=== PATIENT | male | born 1955 | race Caucasian/White ===

== ENCOUNTER 2018-04-12 11:37 | Day surgery (SDC) | payer MEDICAID ==
[2018-04-11 09:28] LABS: CLARITY,URINE CLEAR (Clear); COLOR,URINE YELLOW (Yellow); GLUCOSE, URINE NEGATIVE (Neg); KETONES,URINE NEGATIVE (Neg); LEUKOCYTE ESTERASE ,URINE NEGATIVE (Neg); NITRITES, URINE NEGATIVE (Neg); OCCULT BLOOD,URINE NEGATIVE (Neg); PROTEIN,URINE NEGATIVE (Neg); UROBILINOGEN,URINE 0.2 E.U/dL (0.2-1.0)
[2018-04-11 09:30] LABS: UA COLLECTION TYPE CLN CATCH MIDSTREAM
[2018-04-11 09:32] LABS: BASOPHILS # (AUTO) 0.1 X10'3 (0-0.2); BASOPHILS % (AUTO) 0.9 % (0-1); EOSINOPHILS # (AUTO) 0.2 X10'3 (0-0.9); EOSINOPHILS % (AUTO) 2.3 % (0-6); LYMPHOCYTES # (AUTO) 2.8 X10'3 (1.1-4.8); LYMPHOCYTES % (AUTO) 31.3 % (21-51); MEAN CORPUSCULAR HEMOGLOBIN 30.8 PG (27.0-31.0); MEAN CORPUSCULAR HGB CONC 34.9 % (33.0-36.5); MEAN CORPUSCULAR VOLUME 88.4 FL (78-98); MEAN PLATELET VOLUME 7.5 FL (7.4-10.4); MONOCYTES # (AUTO) 0.8 X10'3 (0-0.9); NEUTROPHILS % (AUTO) 56.5 % (42-75); PRE OP HEMATOCRIT 49.1 % (42.0-52.0); PRE OP HEMOGLOBIN 17.1 g/dL (14.0-17.9); PRE OP PLATELET COUNT 224 X10'3 (140-440); RED BLOOD COUNT 5.56 X10'6 (4.70-6.10); RED CELL DISTRIBUTION WIDTH 12.8 % (11.5-14.5)
[2018-04-11 09:48] LABS: ALBUMIN 3.8 G/DL (3.4-5.0); ALBUMIN/GLOBULIN RATIO 1.1 (1.1-1.5); ALKALINE PHOSPHATASE 101 IU/L (46-116); BLOOD UREA NITROGEN 14 MG/DL (7-18); BUN/CREATININE RATIO 15.4 (5.4-32.0); CALCIUM 8.7 MG/DL (8.5-10.1); CHLORIDE 103 MMOL/L (99-107); CREATININE 0.91 MG/DL (0.60-1.10); PRE OP ALT 37 U/L (30-65); PRE OP ANION GAP 10 (8-16); PRE OP AST 20 U/L (10-37); PRE OP BILIRUB, TOTAL 0.5 MG/DL (0.0-1.0); PRE OP GLUCOSE 100 MG/DL (70-104); PRE OP SODIUM 138 MMOL/L (135-145); TOTAL CARBON DIOXIDE 25.3 MMOL/L (24-32); TOTAL PROTEIN 7.3 G/DL (6.4-8.2); eGFR 84 ML/MIN
[2018-04-12] VITALS (8 sets, daily range): BP systolic 118–131; BP diastolic 64–94
[~2018-04-12] VITALS: Ht 177.8 cm; Wt 89.0 kg
[~2018-04-12 11:37] MED LIST: ALBU18HF2 INH; IPRA3AMP31 INH; LORA10TA65 PO; METH4TAB PO; UMEC1DIS INH; cefazolin/dext.iso 2gm/100 ML IV ONE; famotidine 20mg tablet PO ONE; ringers solution, lacted 1,000 ML IV SCH
[2018-04-12] MEDS ORDERED: LIDOcaine 1% (10mg/ml) 2ml vial ONE (11:45)
[2018-04-12] MEDS ORDERED: ringers solution, lacted 1,000 ML IV SCH (12:24)
[2018-04-12] MEDS ORDERED: morphine 4 MG/ML inj SYRINge IV PRN ×2 (12:25)
[2018-04-12] MEDS ORDERED: hydrALAZINE 20mg/ml inj. IV PRN (12:25)
[2018-04-12] MEDS ORDERED: ondansetron/PF 4mg/2ml inj IV PRN (12:25)
[2018-04-12] MEDS ORDERED: labetalol 20mg/4ml (5mg/ml) syringe IV PRN (12:25)
[2018-04-12] MEDS ORDERED: fentaNYL/PF 50MCG/1 ML 2ML syringe IV PRN ×2 (12:25)
[2018-04-12] MEDS ORDERED: BUPIVAcaine/PF 2.5mg/ml (0.25%) 10ml vial ONE (13:32)
[2018-04-12] MEDS ORDERED: LIDOcaine 1% 30ml preserv. free vial ONE (13:32)
[2018-04-12] MEDS ORDERED: sevoflurane 250ml liquid IH ONE (14:00)
[2018-04-12] MEDS ORDERED: midazolam 2 mg/2 ml injection ONE (14:07)
[2018-04-12] MEDS ORDERED: fentaNYL/PF 50MCG/1 ML 2ML syringe ONE (14:07)
[2018-04-12] MEDS ORDERED: propofol inj 20 ML IV ONE (14:11)
[2018-04-12] MEDS ORDERED: LIDOcaine 2% (20mg/ml) 5ml vial ONE (14:11)
== END 2018-04-12 16:00 | disposition home or self-care (01) ==
LOC: PAS 11:37
PROVIDERS: ATTEND Surgery
DX: D17.0 Benign lipomatous neoplasm of skin and subcutaneous tissue of head, face and neck (principal); J44.9 Chronic obstructive pulmonary disease, unspecified; G47.33 Obstructive sleep apnea (adult) (pediatric); M19.90 Unspecified osteoarthritis, unspecified site; K21.9 Gastro-esophageal reflux disease without esophagitis; F17.210 Nicotine dependence, cigarettes, uncomplicated; Z99.81 Dependence on supplemental oxygen; Z72.89 Other problems related to lifestyle; Z88.5 Allergy status to narcotic agent; Z90.49 Acquired absence of other specified parts of digestive tract; Z98.890 Other specified postprocedural states; Z79.899 Other long term (current) drug therapy
CPT/HCPCS: 21555; 36415; 80053; 81003; 85025; 93005; A6449; J0690; J2001; J2250; J2704; J3010; J3490; A7000; J7120

== ENCOUNTER 2018-04-16 08:25 | Day surgery (SDC) | payer MEDICAID ==
[~2018-04-16] VITALS: Ht 177.8 cm; Wt 90.7 kg
[2018-04-16] VITALS (16 sets, daily range): BP systolic 125–147; BP diastolic 62–112
[~2018-04-16 08:25] MED LIST changes: -cefazolin/dext.iso 2gm/100 ML IV ONE; -famotidine 20mg tablet PO ONE; -ringers solution, lacted 1,000 ML IV SCH
[2018-04-16] MEDS ORDERED: normal saline 1000ml 1,000 ML IV PRN (08:40)
[2018-04-16] MEDS ORDERED: UMEC1DIS (09:29)
[2018-04-16] MEDS ORDERED: ALBU18HF2 INH (09:30)
[2018-04-16 09:32] LABS: BASOPHILS # (AUTO) 0.1 X10'3 (0-0.2); BASOPHILS % (AUTO) 0.9 % (0-1); EOSINOPHILS # (AUTO) 0.3 X10'3 (0-0.9); EOSINOPHILS % (AUTO) 3.8 % (0-6); HEMATOCRIT 46.6 % (42.0-52.0); HEMOGLOBIN 15.6 g/dl (14.0-17.9); LYMPHOCYTES # (AUTO) 2.2 X10'3 (1.1-4.8); LYMPHOCYTES % (AUTO) 28.9 % (21-51); MEAN CORPUSCULAR HEMOGLOBIN 30.4 PG (27.0-31.0); MEAN CORPUSCULAR HGB CONC 33.6 % (33.0-36.5); MEAN CORPUSCULAR VOLUME 90.5 FL (78-98); MEAN PLATELET VOLUME 6.9 FL (7.4-10.4); MONOCYTES # (AUTO) 0.7 X10'3 (0-0.9); MONOCYTES % (AUTO) 8.9 % (2-12); NEUTROPHILS # (AUTO) 4.3 X10'3 (1.8-7.7); NEUTROPHILS % (AUTO) 57.5 % (42-75); PLATELET COUNT 284 X10'3 (140-440); RED BLOOD COUNT 5.15 X10'6 (4.70-6.10); RED CELL DISTRIBUTION WIDTH 13.7 % (11.5-14.5); WHITE BLOOD COUNT 7.5 X10'3 (4.5-11.0)
[2018-04-16 09:39] LABS: ALBUMIN 3.2 G/DL (3.4-5.0); ANION GAP 10 (8-16); BLOOD UREA NITROGEN 13 MG/DL (7-18); BUN/CREATININE RATIO 14.9 (5.4-32.0); CALCIUM 8.1 MG/DL (8.5-10.1); CHLORIDE 104 MMOL/L (99-107); CREATININE 0.87 MG/DL (0.60-1.10); GLUCOSE 119 MG/DL (70-104); POTASSIUM 3.9 MMOL/L (3.5-5.1); SODIUM 139 MMOL/L (135-145); TOTAL CARBON DIOXIDE 25.2 MMOL/L (24-32); eGFR 88 ML/MIN
[2018-04-16 09:41] LABS: PROTHROMBIN TIME 10.3 SECONDS (9.0-12.0)
[2018-04-16] MEDS ORDERED: LIDOcaine 1%/PF 5ML 10 MG/ML VIAL SQ ONE (11:10)
[2018-04-16] MEDS ORDERED: midazolam 2 mg/2 ml injection IV PRN (11:10)
[2018-04-16] MEDS ORDERED: fentaNYL/PF 50MCG/1 ML 2ML syringe IV PRN (11:10)
[2018-04-16] MEDS ORDERED: LIDOcaine 1% (10mg/ml) 2ml vial SQ ONE (11:15)
[2018-04-16] MEDS ORDERED: fentaNYL/PF 50MCG/1 ML 2ML syringe ONE (11:27)
== END 2018-04-16 14:36 | disposition home or self-care (01) ==
LOC: SSTAY O 08:25
PROVIDERS: ATTEND Radiology Diagnostic Radiology
DX: J84.89 Other specified interstitial pulmonary diseases (principal); G89.29 Other chronic pain; J42 Unspecified chronic bronchitis; F17.210 Nicotine dependence, cigarettes, uncomplicated; J44.9 Chronic obstructive pulmonary disease, unspecified; K21.9 Gastro-esophageal reflux disease without esophagitis; Z99.81 Dependence on supplemental oxygen; Z90.49 Acquired absence of other specified parts of digestive tract; Z72.89 Other problems related to lifestyle; Z88.5 Allergy status to narcotic agent; Z87.891 Personal history of nicotine dependence; Z98.890 Other specified postprocedural states; Z79.899 Other long term (current) drug therapy
CPT/HCPCS: 10022; 36415; 71045; 77012; 80048; 85025; 85610; 99152; 99153; C2613; J3010; J7030; 32405; J2001

== ENCOUNTER 2019-01-08 06:25 | Day surgery (SDC) | payer MEDICARE, MEDICAID ==
[2019-01-08] VITALS (15 sets, daily range): BP systolic 118–152; BP diastolic 61–94
[~2019-01-08] VITALS: Ht 175.3 cm; Wt 80.0 kg
[~2019-01-08 06:25] MED LIST changes: -LORA10TA65 PO; -METH4TAB PO
[2019-01-08] MEDS ORDERED: normal saline 1000ml 1,000 ML IV SCH ×2 (06:45→08:24)
[2019-01-08] MEDS ORDERED: ASPI-611 PO (06:54)
[2019-01-08] MEDS ORDERED: MELO-102 PO (06:54)
[2019-01-08] MEDS ORDERED: LORA10TA7 PO (06:54)
[2019-01-08 07:05] LABS: BASOPHILS # (AUTO) 0.1 X10'3 (0-0.2); BASOPHILS % (AUTO) 0.7 % (0-1); EOSINOPHILS # (AUTO) 0.4 X10'3 (0-0.9); EOSINOPHILS % (AUTO) 5.5 % (0-6); HEMATOCRIT 53.4 % (42.0-52.0); LYMPHOCYTES # (AUTO) 1.9 X10'3 (1.1-4.8); LYMPHOCYTES % (AUTO) 27.3 % (21-51); MEAN CORPUSCULAR HEMOGLOBIN 31.7 PG (27.0-31.0); MEAN CORPUSCULAR HGB CONC 33.7 g/dL (33.0-36.5); MEAN CORPUSCULAR VOLUME 94.1 FL (78-98); MEAN PLATELET VOLUME 6.6 FL (7.4-10.4); MONOCYTES # (AUTO) 0.7 X10'3 (0-0.9); MONOCYTES % (AUTO) 9.9 % (2-12); NEUTROPHILS % (AUTO) 56.6 % (42-75); PLATELET COUNT 243 X10'3 (140-440); RED BLOOD COUNT 5.68 X10'6 (4.70-6.10); RED CELL DISTRIBUTION WIDTH 14.5 % (11.5-14.5); WHITE BLOOD COUNT 7.1 X10'3 (4.5-11.0)
[2019-01-08 07:16] LABS: ALANINE AMINOTRANSFERASE 38 U/L (12-78); ALBUMIN 3.8 G/DL (3.4-5.0); ALKALINE PHOSPHATASE 109 IU/L (46-116); ANION GAP 11 (8-16); ASPARTATE AMINO TRANSFERASE 24 U/L (10-37); BILIRUBIN,TOTAL 0.2 MG/DL (0.1-1.0); BLOOD UREA NITROGEN 7 MG/DL (7-18); BUN/CREATININE RATIO 9.3 (5.4-32.0); CALCIUM 8.5 MG/DL (8.5-10.1); CHLORIDE 106 MMOL/L (99-107); CREATININE 0.75 MG/DL (0.60-1.10); GLUCOSE 90 MG/DL (70-104); POTASSIUM 4.1 MMOL/L (3.5-5.1); SODIUM 140 MMOL/L (135-145); TOTAL CARBON DIOXIDE 22.7 MMOL/L (24-32); TOTAL PROTEIN 7.5 G/DL (6.4-8.2); eGFR > 90 ML/MIN
[2019-01-08] MEDS ORDERED: fentaNYL/PF 50MCG/1 ML 2ML syringe IV PRN (08:25)
[2019-01-08] MEDS ORDERED: midazolam 2 mg/2 ml injection IV PRN (08:25)
[2019-01-08] MEDS ORDERED: LIDOcaine 1%/PF 5ML 10 MG/ML VIAL SQ ONE (08:25)
[2019-01-08] MEDS ORDERED: fentaNYL/PF 50MCG/1 ML 2ML syringe ONE (08:30)
[2019-01-08] MEDS ORDERED: LIDOcaine 1%/PF 5ML 10 MG/ML VIAL ONE (08:30)
[2019-01-08] MEDS ORDERED: midazolam 2 mg/2 ml injection ONE (08:30)
[2019-01-08] MEDS ORDERED: gelatin sponge, absorbable (Gelfoam 12-7MM) sponge TP ONE (08:45)
[2019-01-08] MEDS ORDERED: LIDOcaine/PRILOcaine 5gm cream TP ONE (08:47)
== END 2019-01-08 11:50 | disposition home or self-care (01) ==
LOC: SSTAY O 06:25
PROVIDERS: ATTEND Radiology Vascular & Interventional Radiology
DX: R91.8 Other nonspecific abnormal finding of lung field (principal); J44.9 Chronic obstructive pulmonary disease, unspecified; F17.210 Nicotine dependence, cigarettes, uncomplicated; E66.3 Overweight; Z68.25 Body mass index [BMI] 25.0-25.9, adult; Z79.899 Other long term (current) drug therapy; Z88.6 Allergy status to analgesic agent
CPT/HCPCS: 32405; 36415; 71045; 77012; 80053; 85025; 85610; J2250; J3010; J7030

== ENCOUNTER 2019-03-09 12:42 | Observation (INO) | payer MEDICARE, MEDICAID ==
[~2019-03-09] VITALS: Ht 177.8 cm; Wt 81.0 kg
[~2019-03-09 12:42] MED LIST changes: +ASPI-611 PO; +LORA10TA7 PO; +MELO-102 PO
[2019-03-09 13:10] LABS: BASOPHILS % (AUTO) 0.5 % (0-1); EOSINOPHILS # (AUTO) 0.3 X10'3 (0-0.9); EOSINOPHILS % (AUTO) 3.8 % (0-6); HEMATOCRIT 50.1 % (42.0-52.0); HEMOGLOBIN 17.4 g/dl (14.0-17.9); LYMPHOCYTES # (AUTO) 2.2 X10'3 (1.1-4.8); LYMPHOCYTES % (AUTO) 29.7 % (21-51); MEAN CORPUSCULAR HEMOGLOBIN 32.5 PG (27.0-31.0); MEAN CORPUSCULAR HGB CONC 34.7 g/dL (33.0-36.5); MEAN CORPUSCULAR VOLUME 93.6 FL (78-98); MEAN PLATELET VOLUME 6.7 FL (7.4-10.4); MONOCYTES # (AUTO) 0.6 X10'3 (0-0.9); MONOCYTES % (AUTO) 8.7 % (2-12); NEUTROPHILS # (AUTO) 4.2 X10'3 (1.8-7.7); NEUTROPHILS % (AUTO) 57.3 % (42-75); PLATELET COUNT 210 X10'3 (140-440); RED BLOOD COUNT 5.35 X10'6 (4.70-6.10); RED CELL DISTRIBUTION WIDTH 14.3 % (11.5-14.5); WHITE BLOOD COUNT 7.3 X10'3 (4.5-11.0)
[2019-03-09 13:25] LABS: PARTIAL THROMBOPLASTIN TIME 28 SECONDS (22-32)
[2019-03-09 13:27] LABS: ALANINE AMINOTRANSFERASE 56 U/L (12-78); ALBUMIN 3.7 G/DL (3.4-5.0); ALBUMIN/GLOBULIN RATIO 1.1 (1.1-1.5); ALKALINE PHOSPHATASE 89 IU/L (46-116); ANION GAP 11 (8-16); ASPARTATE AMINO TRANSFERASE 43 U/L (10-37); BILIRUBIN,TOTAL 0.4 MG/DL (0.1-1.0); BLOOD UREA NITROGEN 8 MG/DL (7-18); BUN/CREATININE RATIO 10.4 (5.4-32.0); CALCIUM 8.7 MG/DL (8.5-10.1); CHLORIDE 106 MMOL/L (99-107); CREATININE 0.77 MG/DL (0.60-1.10); GLUCOSE 80 MG/DL (70-104); POTASSIUM 4.1 MMOL/L (3.5-5.1); SODIUM 141 MMOL/L (135-145); TOTAL CARBON DIOXIDE 24.2 MMOL/L (24-32); TOTAL PROTEIN 7.2 G/DL (6.4-8.2); eGFR > 90 ML/MIN
[2019-03-09] MEDS ORDERED: potassium CL 10mEq/100ml bag 100 ML IV PRN ×2 (14:10)
[2019-03-09] MEDS ORDERED: magnesium Cl slow-release 64mg tablet PO PRN (14:10)
[2019-03-09] MEDS ORDERED: nitroGLYCERIN 0.4mg SUBLingual tab SL PRN ×2 (14:10)
[2019-03-09] MEDS ORDERED: aminophylline 250mg/10ml inj. IV PRN (14:10)
[2019-03-09] MEDS ORDERED: magnesium 2GM in 50ml NS 50 ML IV PRN (14:10)
[2019-03-09] MEDS ORDERED: metoprolol tartrate 1mg/ml inj IV PRN (14:10)
[2019-03-09] MEDS ORDERED: potassium Cl 20 mEq SR tablet PO PRN ×2 (14:10)
[2019-03-09] MEDS ORDERED: ondansetron/PF 4mg/2ml inj IV PRN (14:10)
[2019-03-09] MEDS ORDERED: regadenoson 0.4mg/5ml syringe IV ONE (14:10)
[2019-03-09] MEDS ORDERED: acetaminophen 325mg tablet PO PRN ×2 (14:10)
[2019-03-09] MEDS ORDERED: magnesium 4gm in 100ml NS 100 ML IV PRN (14:10)
[2019-03-09] MEDS ORDERED: morphine 2 MG/ML inj. syringe IV PRN ×2 (14:10)
[2019-03-09] MEDS ORDERED: magnesium hydroxide 30ml (MOM) UD suspension PO PRN (14:10)
[2019-03-09] MEDS ORDERED: mag hydrox/Alum hydrox/simeth 30ml oral suspension PO PRN (14:10)
[2019-03-09] MEDS ORDERED: aspirin 81mg tab.chew PO ONE (14:15)
[2019-03-09] MEDS ORDERED: nitroGLYCERIN 0.4mg/hour patch TD ONE (14:15)
[2019-03-09] MEDS: normal saline 1000ml 1,000 ML IV SCH ×2 (16:14→16:15)
--- NOTE | 2019-03-09 16:50 | NUR ---
Received Pt from ED. Pt stable, heart rate low and MD notified. Pt not symptomatic, other vital stable
--- NOTE | 2019-03-09 17:10 | NUR ---
PAGER ID: [phone] MESSAGE: RE; Imtiaz Ramsey, room: 3026B. Pt's heart rate continues to drop to mid 40's then returns to low 60's. Other vitals within normal limits. Pt is not symptomatic -Shankar PCU Dr. Garcia paged concerning Pt's low heart rate
--- NOTE | 2019-03-09 17:14 | NUR ---
MD Garcia returned call, Orders are continue to monitor Pt's low heart rate
[2019-03-09 17:50] VITALS: BP 126/74
--- NOTE | 2019-03-09 18:15 | NUR ---
Problems reprioritized. Patient report given, questions answered & plan of care reviewed with Suellen LAY.
[2019-03-09 19:00] VITALS: BP 135/66
[2019-03-09] MEDS ORDERED: temazepam 15mg capsule PO PRN (21:00)
[2019-03-09 23:00] VITALS: BP 119/68
[2019-03-10] VITALS (9 sets, daily range): BP systolic 102–133; BP diastolic 61–70
[2019-03-10 03:19] LABS: HEMATOCRIT 43.3 % (42.0-52.0); HEMOGLOBIN 14.8 g/dl (14.0-17.9); MEAN CORPUSCULAR HEMOGLOBIN 32.1 PG (27.0-31.0); MEAN CORPUSCULAR HGB CONC 34.2 g/dL (33.0-36.5); MEAN CORPUSCULAR VOLUME 93.8 FL (78-98); MEAN PLATELET VOLUME 7.3 FL (7.4-10.4); PLATELET COUNT 164 X10'3 (140-440); RED BLOOD COUNT 4.62 X10'6 (4.70-6.10); RED CELL DISTRIBUTION WIDTH 14.2 % (11.5-14.5); WHITE BLOOD COUNT 7.1 X10'3 (4.5-11.0)
[2019-03-10 03:33] LABS: ALBUMIN 2.8 G/DL (3.4-5.0); ANION GAP 8 (8-16); BLOOD UREA NITROGEN 11 MG/DL (7-18); BUN/CREATININE RATIO 15.5 (5.4-32.0); CALCIUM 8.3 MG/DL (8.5-10.1); CHLORIDE 107 MMOL/L (99-107); CHOL/HDL RATIO 2.4 (0.00-4.99); CHOLESTEROL 159 MG/DL (0-200); CREATININE 0.71 MG/DL (0.60-1.10); GLUCOSE 80 MG/DL (70-104); HDL CHOLESTEROL 67 MG/DL (35-60); LDL CHOLESTEROL 80 MG/DL (50-100); MAGNESIUM 1.7 MG/DL (1.5-2.4); POTASSIUM 3.9 MMOL/L (3.5-5.1); SODIUM 141 MMOL/L (135-145); TOTAL CARBON DIOXIDE 26.4 MMOL/L (24-32); TRIGLYCERIDES 68 MG/DL (20-135); eGFR > 90 ML/MIN
[2019-03-10] MEDS: normal saline 1000ml 1,000 ML IV SCH ×2 (06:14→07:16)
--- NOTE | 2019-03-10 06:56 | NUR ---
Patient in room PCU 3026. I have received report from ALIREZA VELÁZQUEZ and had the opportunity to ask questions and assume patient care.
[2019-03-10] MEDS ORDERED: regadenoson 0.4mg/5ml syringe IV ONE (08:00)
[2019-03-10] MEDS ORDERED: aspirin 81mg tablet.DR PO SCH (08:00)
[2019-03-10] MEDS ORDERED: enoxaparin 40mg/0.4ml syringe SQ SCH (08:00)
[2019-03-10] MEDS ORDERED: K and/or MAG REPLACEMENT MC SCH (08:00)
[2019-03-10] MEDS ORDERED: aminophylline 250mg/10ml inj. IV PRN (08:00)
[2019-03-10] MEDS ORDERED: loratadine 10mg tablet PO SCH (08:00)
[2019-03-10] MEDS ORDERED: aspirin 81mg tab.chew PO SCH (08:00)
[2019-03-10] MEDS ORDERED: NITR0.4T51 SL (11:24)
== END 2019-03-10 13:05 | disposition home health service (06) ==
LOC: ER 12:43 → PCU 3S 17:07
PROVIDERS: ADMIT Family Medicine; ATTEND Family Medicine
DX: I20.9 Angina pectoris, unspecified (principal); I16.0 Hypertensive urgency; I24.9 Acute ischemic heart disease, unspecified; J44.9 Chronic obstructive pulmonary disease, unspecified; F17.210 Nicotine dependence, cigarettes, uncomplicated; Z79.82 Long term (current) use of aspirin; Z79.899 Other long term (current) drug therapy; Z90.49 Acquired absence of other specified parts of digestive tract; Z99.81 Dependence on supplemental oxygen; Z59.0 Homelessness
CPT/HCPCS: 36415; 71045; 78452; 80048; 80053; 80061; 83735; 84443; 84484; 85025; 85027; 85610; 85730; 87081; 93005; 93017; 93308; 96360; 96361; 99284; A9500; G0378; J2785; J7030; 96372; J1650

== ENCOUNTER 2019-09-05 11:20 | Day surgery (SDC) | payer MEDICARE, MEDICAID ==
[~2019-09-05] VITALS: Ht 177.8 cm; Wt 82.5 kg
[~2019-09-05 11:20] MED LIST changes: -ALBU18HF2 INH; -IPRA3AMP31 INH; -MELO-102 PO; +NITR0.4T51 SL; -UMEC1DIS INH
[2019-09-05 11:40] VITALS: BP 115/74
[2019-09-05] MEDS ORDERED: normal saline 1000ml 1,000 ML IV SCH (11:40)
[2019-09-05] MEDS ORDERED: ALB0.5UD IH (12:21)
[2019-09-05] MEDS ORDERED: METO-395 PO (12:21)
[2019-09-05] MEDS ORDERED: BUDE10.2 INH (12:21)
[2019-09-05] MEDS ORDERED: ATOR20TA PO (12:21)
[2019-09-05] MEDS ORDERED: ALBU18HF2 INH (12:21)
[2019-09-05] MEDS ORDERED: NITR0.4T51 SL (12:21)
[2019-09-05] MEDS ORDERED: CLOP75TA33 PO (12:21)
[2019-09-05] MEDS ORDERED: midazolam 2 mg/2 ml injection ONE (13:59)
[2019-09-05] MEDS ORDERED: LIDOcaine 1%/PF 5ML 10 MG/ML VIAL ONE (13:59)
[2019-09-05] MEDS ORDERED: heparin sodium, porcine/PF 100unit/ml 5ML syringe ONE ×2 (13:59→14:07)
[2019-09-05] MEDS ORDERED: fentaNYL/PF 50MCG/1 ML 2ML syringe ONE (13:59)
[2019-09-05 15:00] VITALS: BP 124/85
--- NOTE | 2019-09-05 15:00 | NUR ---
pt had small amt of bleed on neck post port insertion, applied surgifoam and held pressure about 10 minutes and there was no more bleeding, new clear opsite dsg applied and will continue to monitor for any bleeding.
[2019-09-05] MEDS ORDERED: gelatin sponge, absorbable (Gelfoam 12-7MM) sponge TP ONE (15:04)
[2019-09-05 15:15] VITALS: BP 129/76
[2019-09-05 15:49] VITALS: BP 126/82
[2019-09-05 16:10] VITALS: BP 137/80
--- NOTE | 2019-09-05 16:25 | NUR ---
dsg CDI , instructed pt if there's any bleeding, infection or having any other symptoms to go to the nearest ER.
== END 2019-09-05 16:25 | disposition home or self-care (01) ==
LOC: SSTAY O 11:20
PROVIDERS: ATTEND Radiology Vascular & Interventional Radiology
DX: C34.90 Malignant neoplasm of unspecified part of unspecified bronchus or lung (principal); Z79.01 Long term (current) use of anticoagulants; Z88.6 Allergy status to analgesic agent; Z79.899 Other long term (current) drug therapy; Z72.0 Tobacco use; J44.9 Chronic obstructive pulmonary disease, unspecified; K21.9 Gastro-esophageal reflux disease without esophagitis; G47.30 Sleep apnea, unspecified
CPT/HCPCS: 36415; 36561; 76937; 77001; 85610; 99152; 99153; C1769; C1788; C1894; J1642; J2250; J3010

== ENCOUNTER 2022-04-27 08:20 | Day surgery (SDC) | payer MEDICARE, MEDICAID ==
[~2022-04-27] VITALS: Ht 177.8 cm; Wt 92.9 kg
[~2022-04-27 08:20] MED LIST changes: +ALB0.5UD IH; +ALBU18HF2 INH; +ATOR20TA PO; +BUDE10.2 INH; +CLOP75TA33 PO; -LORA10TA7 PO; +METO-395 PO
[2022-04-27 08:40] VITALS: BP 119/75
[2022-04-27] MEDS ORDERED: normal saline 1000ml 1,000 ML IV PRN (08:45)
[2022-04-27] MEDS ORDERED: albumin 25% 100mL bottle x 1 IV PRN (08:45)
[2022-04-27] MEDS ORDERED: FOLI1TAB27 PO (08:51)
[2022-04-27 09:14] LABS: BASOPHILS # (AUTO) 0.1 X10'3 (0-0.2); BASOPHILS % (AUTO) 0.7 % (0-1); EOSINOPHILS # (AUTO) 0.3 X10'3 (0-0.9); EOSINOPHILS % (AUTO) 3.9 % (0-6); HEMATOCRIT 47.1 % (42.0-52.0); LYMPHOCYTES # (AUTO) 1.4 X10'3 (1.1-4.8); LYMPHOCYTES % (AUTO) 18.2 % (21-51); MEAN CORPUSCULAR HEMOGLOBIN 30.9 PG (27.0-31.0); MEAN CORPUSCULAR HGB CONC 33.9 g/dL (33.0-36.5); MEAN CORPUSCULAR VOLUME 91.3 FL (78-98); MEAN PLATELET VOLUME 6.9 FL (7.4-10.4); MONOCYTES # (AUTO) 0.8 X10'3 (0-0.9); MONOCYTES % (AUTO) 10.2 % (2-12); NEUTROPHILS # (AUTO) 5.2 X10'3 (1.8-7.7); PLATELET COUNT 207 X10'3 (140-440); RED BLOOD COUNT 5.16 X10'6 (4.70-6.10); RED CELL DISTRIBUTION WIDTH 14.5 % (11.5-14.5); WHITE BLOOD COUNT 7.7 X10'3 (4.5-11.0)
[2022-04-27 09:39] LABS: ALBUMIN 3.8 G/DL (3.4-5.0); ANION GAP 8 (8-16); BLOOD UREA NITROGEN 13 MG/DL (7-18); BUN/CREATININE RATIO 12.5 (5.4-32.0); CALCIUM 9.6 MG/DL (8.5-10.1); CHLORIDE 103 MMOL/L (99-107); CREATININE 1.04 MG/DL (0.60-1.10); GLUCOSE 111 MG/DL (70-104); POTASSIUM 3.7 MMOL/L (3.5-5.1); SODIUM 138 MMOL/L (135-145); TOTAL CARBON DIOXIDE 26.9 MMOL/L (24-32); eGFR 71 ML/MIN
[2022-04-27] MEDS ORDERED: MESSAGE TO NURSING PO NR (10:00)
== END 2022-04-27 12:42 | disposition home or self-care (01) ==
LOC: SSTAY O 08:20
PROVIDERS: ATTEND Radiology Diagnostic Radiology
DX: C34.11 Malignant neoplasm of upper lobe, right bronchus or lung (principal); Z53.8 Procedure and treatment not carried out for other reasons; K21.9 Gastro-esophageal reflux disease without esophagitis; J44.9 Chronic obstructive pulmonary disease, unspecified; E78.5 Hyperlipidemia, unspecified; G47.30 Sleep apnea, unspecified; M19.90 Unspecified osteoarthritis, unspecified site; Z98.49 Cataract extraction status, unspecified eye; Z98.890 Other specified postprocedural states; Z79.899 Other long term (current) drug therapy; Z20.822 Contact with and (suspected) exposure to COVID-19
CPT/HCPCS: 36415; 80048; 85025; 85610; 87811; J7030

== ENCOUNTER 2023-12-19 15:23 | Emergency (ER) | payer MEDICARE, MEDICAID ==
[~2023-12-19] VITALS: Ht 177.8 cm; Wt 90.1 kg
[~2023-12-19 15:23] MED LIST changes: -ALB0.5UD IH; +ALBU2.5V12 NEB; -CLOP75TA33 PO; +FOLI1TAB27 PO; +LACT1CAP26 PO; +PANT40TA54 PO
[2023-12-19 15:32] VITALS: TEMP 99
[2023-12-19] MEDS: furosemide 20MG tablet PO ONE (17:04)
[2023-12-19 17:05] VITALS: BP 113/68; PULSE 62; RESP 22; O2SAT 96
[2023-12-19] MEDS ORDERED: DOXY150T3 PO (17:21)
[2023-12-19] MEDS ORDERED: FURO-150 PO (17:21)
[2023-12-19] MEDS ORDERED: ondansetron 4mg/5ml UD cup PO STA (17:23)
== END 2023-12-19 18:11 | disposition home or self-care (01) ==
LOC: ER 15:23
DX: R60.0 Localized edema (principal); L03.115 Cellulitis of right lower limb; I50.9 Heart failure, unspecified; F12.90 Cannabis use, unspecified, uncomplicated; Z60.2 Problems related to living alone; Z88.8 Allergy status to other drugs, medicaments and biological substances; Z79.82 Long term (current) use of aspirin; Z79.51 Long term (current) use of inhaled steroids; Z79.899 Other long term (current) drug therapy
CPT/HCPCS: 71045; 93971; 99284

== ENCOUNTER 2024-05-13 10:50 | Emergency (ER) | payer MEDICARE, MEDICAID ==
[~2024-05-13] VITALS: Ht 177.8 cm; Wt 84.1 kg
[2024-05-13] MEDS: dexamethasone sod phosphate 10mg/ml inj IM ONE (11:35)
[2024-05-13] MEDS ORDERED: PRED20TA PO (11:43)
[2024-05-13] MEDS ORDERED: HYDR-3686 PO (11:43)
[2024-05-13 11:51] VITALS: BP 132/78; PULSE 78; RESP 16; TEMP 98.5; O2SAT 98
== END 2024-05-13 11:52 | disposition home or self-care (01) ==
LOC: ER 10:51
DX: L50.0 Allergic urticaria (principal); F12.90 Cannabis use, unspecified, uncomplicated; Z88.5 Allergy status to narcotic agent; Z79.82 Long term (current) use of aspirin; Z79.51 Long term (current) use of inhaled steroids; Z79.899 Other long term (current) drug therapy; Z60.2 Problems related to living alone
CPT/HCPCS: 96372; 99284; A4615; J1100

== ENCOUNTER 2025-03-14 00:19 | Emergency (ER) | payer MEDICARE, MEDICAID ==
[~2025-03-14] VITALS: Ht 177.8 cm; Wt 73.2 kg
[2025-03-14 00:22] VITALS: TEMP 98.1
--- NOTE | 2025-03-14 00:34 | ELECTROCARDIOGRAPH REPORT ---
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 Charli Shirley Measurements Intervals [place] Rate: 53 P: 72 WA: 193 QRS: 85 QRSD: 114 T: 74 QT: 451 QTc: 424 Interpretive Statements Sinus bradycardia Anteroseptal infarct, age indeterminate Electronically Signed On 03-19-2025 18:49:[address] Charli Shirley Please click the below link to view image of tracing.
[2025-03-14 00:40] LABS: MEAN PLATELET VOLUME 6.6 FL (7.4-10.4); RED CELL DISTRIBUTION WIDTH 16.1 % (11.5-14.5)
--- NOTE | 2025-03-14 00:50 | Physician Documentation ---
History of Present Illness ~ Chief Complaint: Hip pain Stated Complaint: CHEST PAINS M BLS Time Seen by MD: 00:50 Primary Medical Doctor: Dr Wall Mode of Arrival: EMS HPI Patient presents to the emergency room with one day history of left-sided hip pain. No falls or injuries. No prior instances. No shortness of breath. Pain wraps around from his left buttock around to pass his left knee. Medication Reconciliation Allergies: Coded Allergies: codeine (Unverified Allergy, Intermediate, NAUSEA, 10/27/14) Scheduled Albuterol Sulfate (Ventolin Hfa), 90 MCG INH Q6H, (Reported) Aspirin (Aspir 81), 1 TAB PO DAILY, (Reported) Atorvastatin Calcium* (Lipitor*), 2 TAB PO HS, (Reported) Budesonide/Formoterol Fumarate (Symbicort 160-4.5 Mcg Inhaler), 2 PUFFS INH BID, (Reported) Folic Acid* (Folic Acid*), 1 TAB PO DAILY, (Reported) Lactobacillus Rhamnosus (Culturelle), 1 EACH PO BID Metoprolol Succinate (Metoprolol Succinate), 1 TAB PO DAILY, (Reported) Nitroglycerin SL* (Nitrostat SL*), 1 TAB SL UD, (Reported) Pantoprazole Sodium (Pantoprazole Sodium), 40 MG PO BID Scheduled PRN Albuterol Sulfate (Albuterol Sulfate), 1 VIAL NEB Q8H PRN for SOB or wheezing, (Reported) Tramadol HCl (Tramadol HCl), 1 TAB PO TID PRN PRN for pain Past Medical History Past Medical History: No Pertinent History Past Surgical History: other Alcohol Use: None Drug Use: marijuana Lives with: Alone Lives In: Home Review of Systems ROS All review of systems negative except as per HPI Physical Exam Vital Signs: Temperature: 98.1, Heart Rate: 66, Respiratory Rate: 16, BP: 102/64, Pulse Oximetry: 97, Weight: 73.200 Physical Exam General: Patient is awake, alert, oriented x4 in no acute distress and well appearing.~ Head: Normocephalic and atraumatic. Eyes: Conjunctival normal. EOMI. PERRL. ENT: Mucous membranes moist. Neck: Supple, trachea is midline. Chest: Clear to auscultation bilaterally without rales, rhonchi, or wheezes. There is no accessory muscle use or retractions. Cardiac: RRR without murmurs, gallops, or rubs. Abd: Soft, nondistended, nontender, with normoactive bowel sounds. No guarding, rebound, or rigidity. Extremities: Left lower extremity with tenderness to palpation to lateral left hip anterior thigh and lateral left thigh without erythema Progress Results/Orders Results/Orders Orders - WAYNE VICK MD Chest,Single View (03/14/25 00:24) Monitor (03/14/25 00:24) Saline Lock (03/14/25 00:24) Oxygen (03/14/25 00:24) Hs Troponin I W Calculations (03/14/25 02:24) Hs Troponin I W Calculations (03/14/25 03:24) Hip Unilateral 2 Views (03/14/25 01:07) Completed Orders - WAYNE VICK MD Chest,Single View (03/14/25 00:24) Cbc/Diff (03/14/25 00:24) BMP (03/14/25 00:24) PBNP (03/14/25 00:24) Electrocardiogram (03/14/25 00:24) Hs Troponin I W Calculations (03/14/25 00:24) Ketorolac Trometh 15mg/Ml Vial (Toradol (03/14/25 01:10) Acetaminophen 1,000mg/100ml Iv (Ofirmev (03/14/25 01:10) Hip Unilateral 2 Views (03/14/25 01:07) D-Dimer (03/14/25 01:07) Medications Received in ER Medications (Trade) Dose Ordered Sig/Bernardino Route PRN Reason Start Time Stop Time Status Last Admin Dose Admin (Toradol injection) 15 mg ONCE ONCE IV 03/14/25 01:10 03/14/25 01:11 DC 03/14/25 01:19 15 MG Acetaminophen 100 ml @ 400 mls/hr ONCE ONCE IV 03/14/25 01:10 03/14/25 01:24 DC 03/14/25 01:20 400 MLS/HR Vital Signs 03/14/25 03/14/25 03/14/25 03/14/25 00:22 00:33 01:16 01:19 Temp 98.1 Pulse 66 60 Resp 16 16 16 16 B/P (MAP) 102/64 131/46 (74) Pulse Ox 97 96 Laboratory Tests Test 03/14/25 00:30 White Blood Count 6.8 Red Blood Count 4.26 L Hemoglobin 10.2 L Hematocrit 31.6 L Mean Corpuscular Volume 74.3 L Mean Corpuscular Hemoglobin 24.0 L Mean Corpuscular Hemoglobin Concent 32.3 L Red Cell Distribution Width 16.1 H Platelet Count 242 Mean Platelet Volume 6.6 L Neutrophils (%) (Auto) 61.5 Lymphocytes (%) (Auto) 24.0 Monocytes (%) (Auto) 13.2 H Eosinophils (%) (Auto) 0.8 Basophils (%) (Auto) 0.5 Neutrophils # (Auto) 4.2 Lymphocytes # (Auto) 1.6 Monocytes # (Auto) 0.9 Eosinophils # (Auto) 0.1 Basophils # (Auto) 0.0 CBC Comment D-Dimer 0.40 D-Dimer Comment Sodium Level 140 Potassium Level 3.9 Chloride Level 104 Carbon Dioxide Level 30.9 Anion Gap 5 L Blood Urea Nitrogen 14 Creatinine 1.08 Estimated GFR/1.73 m2 67 BUN/Creatinine Ratio 13.0 Glucose Level 105 H Calcium Level 8.6 Troponin I High Sensitivity 7 Pro-B-Type Natriuretic Peptide 168 H Albumin 3.5 Chemistry Comments Medical Decision Making Findings Patient presents to the emergency room for evaluation of left hip pain. Differentials include but are not limited to septic arthritis, osteoarthritis, hip fracture, sciatica, greater trochanter bursitis therefore labs ordered. Labs reassuring for no elevation of white blood cell count he had not feel patient was suffering from infectious process. D-dimer negative and he had not feel patient is suffering from DVT. X-ray reassuring. I suspect sciatica and we will treat as such. Departure Disposition: HOME / SELF CARE / HOMELESS Impression: Primary Impression: Hip pain Condition: Stable Discharge Instructions: Hip Pain Additional Instructions: Follow up with your doctor as you may need referral for MRIs or possible physical therapy Referrals: NO PRIMARY CARE PROVIDER (PCP) Prescriptions Tramadol HCl (Tramadol HCl) 50 Mg Tablet 1 TAB PO TID PRN PRN for pain, #10 TAB Prov: WAYNE VICK MD 03/14/25 Education Educated: Patient Educated regarding: diagnosis, treatment, need for follow up Signature Scribe Signature: No scribe Attestation: The note accurately reflects work and decisions made by me.Wayne Vick MD 03/14/25 01:37 WAYNE VICK MD Mar 14, 2025 00:50
[2025-03-14 01:00] LABS: CREATININE 1.08 MG/DL (0.60-1.10); PRO BRAIN NATRIURETIC PEPTIDE 168 PG/ML (0-125); TOTAL CARBON DIOXIDE 30.9 MMOL/L (24-32); eCRCL 65 ML/MIN; eGFR 67 ML/MIN
--- NOTE | 2025-03-14 01:00 | RADIOLOGY REPORT ---
CHEST RADIOGRAPH Indication: CP Technique: Single frontal view of the chest was obtained COMPARISON: DI CHEST,SINGLE VIEW on DOS: 12/19/23, CT CT CHEST on DOS: 06/23/23, DI CHEST,SINGLE VIEW on DOS: 06/22/23, CHEST,SINGLE VIEW on DOS: 05/10/22, CTA CHEST on DOS: 05/07/22 FINDINGS: Lines and Tubes: None Lungs: Chronic appearing scarring of the right apex and possibly of the right costophrenic sulcus, although, a small pleural effusion can not completely be excluded. The left costophrenic sulcus is excluded from the image. No pneumothorax. Cardiomediastinal contours: Unremarkable Bones: Unremarkable IMPRESSION: 1. Chronic appearing scarring of the right apex and possibly of the right costophrenic sulcus, although, a small pleural effusion can not completely be excluded. 2. The left costophrenic sulcus is excluded from the image.
[2025-03-14] MEDS: ketorolac trometh 15mg/ml vial 15 MG/ML ML IV ONE (01:19)
[2025-03-14] MEDS: acetaminophen 1,000mg/100ml IV 100 ML IV ONE (01:20)
[2025-03-14] MEDS ORDERED: TRAM50TA2 PO (01:37)
--- NOTE | 2025-03-14 01:54 | RADIOLOGY REPORT ---
CLINICAL INDICATION: pain TECHNIQUE: DI HIP UNILATERAL 2 VIEWS Comparison: None FINDINGS/IMPRESSION: : There is no evidence of acute fracture or dislocation. Soft tissues are unremarkable.
[2025-03-14] MEDS: ondansetron/PF 4mg/2ml inj IV ONE (02:12)
[2025-03-14] MEDS: morphine 4 MG/ML inj SYRINge IV ONE (02:13)
[2025-03-14 02:50] VITALS: BP 102/62; PULSE 60; RESP 18; O2SAT 95
== END 2025-03-14 02:52 | disposition home or self-care (01) ==
LOC: ER 00:20
DX: M25.552 Pain in left hip (principal); F12.90 Cannabis use, unspecified, uncomplicated; Z88.5 Allergy status to narcotic agent; Z79.82 Long term (current) use of aspirin; Z79.899 Other long term (current) drug therapy; Z60.2 Problems related to living alone
CPT/HCPCS: 36415; 71045; 73502; 80048; 83880; 84484; 85025; 85379; 93005; 96374; 96375; 99285; J0131; J1885; J2270; J2405

== ENCOUNTER 2025-04-11 10:20 | Outpatient (CLI) | payer MEDICARE, MEDICAID ==
[~2025-04-11 10:20] MED LIST changes: +TRAM50TA2 PO; +iohexol 300mg/ml 100ml inj. ONE
--- NOTE | 2025-04-11 13:21 | RADIOLOGY REPORT ---
CLINICAL HISTORY: MELENA TECHNIQUE: CT of the abdomen was performed with and without contrast. 100 ml of omnipaque 300 was administered intravenously. This exam was performed according to our departmental dose optimization program. Up-to-date CT equipment and radiation dose reduction techniques are utilized as appropriate. WID: COMPARISON: None FINDINGS: Lower Thorax: Normal-sized heart. There is centrilobular emphysema. Linear bibasilar scarring and/or atelectasis. Liver and Biliary system: Normal-sized liver. There is very mild nodular contour of the liver mild heterogeneity of the hepatic parenchyma. There is a small hypodensity in segment 7 of the liver on series 4, image 10. Gallbladder is normal caliber. There is no biliary ductal dilatation. Spleen: Unremarkable. Adrenal Glands and Kidneys: Normal adrenal glands. There are small hypodensities in both kidneys which are likely cysts. There is no hydronephrosis or nephrolithiasis. Pancreas and Retroperitoneum: Unremarkable. Aorta and Major Vessels: Patent abdominal aorta containing moderate to marked mixed atherosclerotic plaque. There is ectasia of the abdominal aorta. Bowel, Mesentery and Peritoneal space: Normal caliber small and large bowel loops in the abdomen. There is mild wall thickening of segments of the large bowel most pronounced in the ascending and descending segments. There is no free intraperitoneal air or loculated fluid collection. No central mesenteric lymphadenopathy. There is mild distal colonic diverticulosis. Abdominal wall and Osseous Structures: Tiny sclerotic foci in the pelvis likely bone islands. Moderate degenerative narrowing at L5-S1 disc space. Minor lower thoracic and lumbar spondylosis. No destructive osseous lesion. There is wall thickening of the visualized urinary bladder with bladder wall trabeculation. IMPRESSION: 1. Mild wall thickening of segments of the large bowel most pronounced in the ascending and descending segments which may be infectious or inflammatory colitis. 2. Centrilobular emphysema. 3. Very mild nodular contour of the liver which may be fibrosis or early cirrhosis. Correlate with liver enzymes and clinical history. 4. [id number] mixed atherosclerotic plaque in the mildly ectatic abdominal aorta. 5. Wall thickening of the visualized urinary bladder with bladder wall trabeculation which could be due to chronic bladder outlet obstruction or cystitis. Correlate with urinalysis.
== END 2025-04-11 23:59 | disposition home or self-care (01) ==
LOC: RAD 10:20
PROVIDERS: ATTEND Family Medicine
DX: J43.2 Centrilobular emphysema (principal); K92.1 Melena; I77.811 Abdominal aortic ectasia
CPT/HCPCS: 74170; Q9967